=== PATIENT | female | born 1960 | race Caucasian/White ===

== ENCOUNTER 2016-05-27 02:23 | Inpatient (IN) | payer OTHER ==
--- NOTE | ~2016-05-27 | DS ---
Discharge Summary [facility] [address] [facility] [place]. [address] NAME: VENKATA JUNIOR : 58 STATUS : ADM IN [facility]#: [id number] AGE: 56 ADM/REG DATE : 05/27/16 MR#: [id number] REPORT SERV DATE: 06/01/16 DICTATED BY: RAJIV SHETH DATE: 06/01/16 REPORT STATUS : Draft TRANSCRIBED BY: MODL DATE: 06/01/16 ADMISSION DATE: 05/27/2016 DISCHARGE DATE: 06/01/2016 DIAGNOSES ON ADMISSION: 1. Aseptic meningitis with headaches and fevers. 2. Leg and hip pain. 3. Mild hypokalemia. 4. No evidence of urinary tract infection. DIAGNOSES ON DISCHARGE: 1. 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 Clinically improved on intravenous acyclovir. 2. Hypertension, controlled. 3. Headache, resolved. 4. Hypokalemia, resolved. 5. Leg and hip pain secondary to viral infection, resolved. 6. Shingles on the back and under the breast, improved. 7. No evidence of urinary tract infection. CONSULTANTS ON THE CASE: Dr. Alonzo of Infectious Disease and Dr. Gill of Neurology. IMAGING STUDIES: 1. MRI of the brain done on 05/27: No evidence of acute abnormality. There are some small gliotic changes in the right and left centrum semiovale. This appears to be remote. 2. X-ray of the hips: Two views, unremarkable. HISTORY OF PRESENT ILLNESS: Briefly, this is a very pleasant, 56-year-old female, who was admitted to the [facility] as a direct transfer from [facility] Department for headache, fever, neck pain and hip pain, where she had lumbar puncture done, which showed a picture of aseptic meningitis, lymphocytic meningitis. For details, see history of present illness dictated by Dr. Rodríguez on 05/27/2016. HOSPITAL COURSE: Briefly, the patient was admitted to the hospital. She was immediately started on intravenous acyclovir and Infectious Disease was consulted as well as Neurology was consulted. The patient was suffering from headaches which were severe in nature, as well as from the pain in her joints specifically in her hips. She was alert, awake, oriented, and she did not have any neurological deficits. The patient improved on intravenous acyclovir. Her headache has resolved and she was doing well. Her appetite improved. She had two areas of shingles under her right breast as well as on the back, and Dr. Alonzo was highly suspicious for varicella zoster meningitis, and he requested some studies from [facility], which he is still going to follow upon. The patient clinically improved. She does not have any headache and she was seen by Dr. Alonzo today, and he recommended her to be discharged today on valacyclovir 1 g p.o. q.8 hours for 12 days, as well as he recommended to do CBC and CMP in one week. She was given phone number Discharge Summary [facility] [address] [place]. [address] NAME: VENKATA JUNIOR : 58 STATUS : ADM IN [facility]#: [id number] AGE: 56 ADM/REG DATE : 05/27/16 MR#: [id number] REPORT SERV DATE: 06/01/16 DICTATED BY: RAJIV SHETH DATE: 06/01/16 REPORT STATUS : Draft TRANSCRIBED BY: MODL DATE: 06/01/[address] Alonzo to call in case if she needs to see him, or if there is any problem. The patient has one kidney. Her creatinine has stayed in the normal range during whole hospitalization, and she is doing well. She was also told to stay home until she feels much energy to go to work and she was also recommended if needed to follow up with her primary care physician, Dr. Chandler Oliver. DISCHARGE MEDICATIONS: Patient to continue her home medications which are Norvasc 5 mg a day, metoprolol 12.5 mg p.o. daily, Osphena 60 p.o. with breakfast, valacyclovir 1 g p.o. q.8 hours for [address] Alonzo. I spent 45 minutes on discharge. All questions were answered. MG/KATELYNNL Rajiv Sheth M.D. / [id number] CC: Deonte Snatacruz MD Paul Cornea, M.D. Gregory C. Gill, MD
--- NOTE | ~2016-05-27 | CN ---
Consultation Report [facility] [address] [place]. [address] NAME: VENKATA JUNIOR : 58 STATUS : ADM IN PAT#: [id number] AGE: 56 ADM/REG DATE : 05/27/16 MR#: [id number] REPORT SERV DATE: 05/27/16 DICTATED BY: DATE: REPORT STATUS : Draft TRANSCRIBED BY: MODL DATE: 05/27/16 NEUROLOGY CONSULTATION DATE OF CONSULTATION: 05/27/2016 REASON FOR CONSULTATION: Aseptic meningitis. HISTORY OF PRESENT ILLNESS: This is a 56-year-old female with acute onset of headache, this started on 05/22/2016. Described the headache initially in the back of her head, subsequently stays in the front of her head with the patient reports the headache mostly consistent, also waxing and waning in severity. The patient denies any aggravating or relieving factors. She denies any dysarthria, dysphagia, language difficulties, confusion, focal weakness, or numbness. The patient does complain of bilateral hip pain, but denies any difficulties ambulating. The patient, starting on 05/24/2016, started to note having chills as well as a fever. Presented herself to outside hospital for evaluation, and was noted to have fever of 100.2, with the patient's spinal tap noted to have abnormal cells with the patient noted to have a 330 white blood cells, with a neutrophil predominant of 97%, elevated protein of 104, with a glucose of 59, Gram stain otherwise reveals no bacteria. The patient denies any history of previous headache in the past, and denies any recent sick contact at the time of presentation. Since the hospitalization, the patient was placed on acyclovir and denies any significant improvement of the headache. Also, the patient was noted to have 97% lymphocytes on CSF evaluation performed at the outside hospital. REVIEW OF SYSTEMS: Otherwise negative except for those mentioned in the HPI. PAST MEDICAL HISTORY: Significant for hypertension. The patient only has one kidney according to the as well as history of interstitial cystitis. HOME MEDICATIONS: Consists of Norvasc, Lopressor, and Osphena. SOCIAL HISTORY: Denies tobacco, alcohol, or recreational drug usage. FAMILY HISTORY: Significant for coronary artery disease, as well as Parkinson's disease, diabetes, and kidney disease. ALLERGIES: THE PATIENT WAS NOTED TO HAVE ALLERGY TO SULFA. PHYSICAL EXAMINATION: VITAL SIGNS: Overnight, the patient was noted to have vital signs with T-max of 100, heart rate of 61 to 80, respiration of 16 to 18, and blood pressure of 130 to 138 over 72 to 75. GENERAL: The patient is well-developed, well-nourished, in no acute distress. CARDIOVASCULAR: Regular rate and rhythm. No carotid bruits were otherwise auscultated. Consultation Report [address] [place]. [address] NAME: VENKATA JUNIOR : 58 STATUS : ADM IN PAT#: [id number] AGE: 56 ADM/REG DATE : 05/27/16 MR#: [id number] REPORT SERV DATE: 05/27/16 DICTATED BY: DATE: REPORT STATUS : Draft TRANSCRIBED BY: XOCHITL DATE: 05/27/16 PULMONARY: Clear to auscultation bilaterally. NEUROLOGIC: Generally, the patient is alert and oriented to person, place, year, and month. Follows simple and 2-step commands. No dysarthria. No aphasia. Intact registration and recall. Cranial nerves 2 through 12, pupils are equal, round, and reactive to light. Extraocular eye movement was noted to be intact with intact peripheral vision. Symmetrical facial expression and sensation. Midline tongue. Normal palatal movement. Normal hearing. The patient demonstrated 5/5 bilateral upper and lower extremity strength with normal muscle, bulk, and tone. Deep tendon reflex was 2+ throughout. Symmetrical sensation bilaterally. Normal [id number] examination without ataxia. Normal station. Normal gait. LABORATORY STUDIES: At the time of evaluation demonstrated white blood cell count of 5.6, hemoglobin of 11.9, hematocrit of 35.0, and platelet count of 210. Chemistry panel: Sodium 145, potassium 3.5, chloride 110, bicarb 25, BUN of 8, creatinine 0.76, glucose of 116, and calcium of 8.0. No neuroimaging was available for comparison. CT scan performed at outside hospital demonstrated no acute process. IMPRESSION: Meningitis. No focal deficits at the time of evaluation noted. The patient was noted to have persistent low-grade fevers with persistent headache despite acyclovir administration since the hospital stay. Question of a possibly repeating lumbar puncture as the patient's lumbar puncture was performed at the outside hospital, and sample is unavailable to us at this time. We will also add Depakote for symptom control. Infectious Disease consult is currently pending. We will also obtain laboratory study as well as the MRI of the brain without contrast. RECOMMENDATION: 1. MRI of the brain without contrast. 2. Continue acyclovir. 3. Infectious Disease consult, pending. 4. Depakote 125 mg IV b.i.d. 5. Sedimentation rate, CRP, procalcitonin, [place] level, HIV, RPR, SSA, SSB antibody, BYRON as well as antidouble-stranded DNA antibody with morning labs. 6. Question of repeating the lumbar puncture. [facility]/MODL Gregory Gill MD / [id number] CC: Michelle Last M.D. Consultation Report [address] [address] NAME: VENKATA JUNIOR MARYURI : 58 STATUS : ADM IN [facility]#: [id number] AGE: 56 ADM/REG DATE : 05/27/16 MR#: [id number] REPORT SERV DATE: 05/27/16 DICTATED BY: DATE: REPORT STATUS : Draft TRANSCRIBED BY: MODL DATE: 05/27/16 Chandler Oliver MD
--- NOTE | ~2016-05-27 | CN ---
Consultation Report [facility] [address] [place]. [address] NAME: VENKATA JUNIOR : 58 STATUS : ADM IN [facility]#: [id number] AGE: 56 ADM/REG DATE : 05/27/16 MR#: [id number] REPORT SERV DATE: 05/28/16 DICTATED BY: MICHELE AGGARWAL DATE: 05/27/16 REPORT STATUS : Draft TRANSCRIBED BY: MODJossy DATE: 05/27/16 DATE OF CONSULTATION: REASON FOR CONSULT: Meningitis. HISTORY OF PRESENT ILLNESS: A 56-year-old white lady with history of hypertension and possible interstitial cystitis as well as left nephrectomy, who was transferred from [facility] emergency room for meningitis. On 05/22/2016, she had acute onset of occipital, then temporal headache. This was followed by severe bilateral hips and femoral bones pain and then fever and chills. She also had some neck ache, but no stiffness. She went to her PCP on the may, where she had a flu screen that was negative and some lab work for "bacterial infection." She was told that was normal. Because of the severe deep hip pains and the headache, she went to the emergency room at [facility] yesterday. She had extensive evaluation there. Lab work showed a WBC of 5.9, creatinine 1.0, lactic acid 0.9, hemoglobin 13, platelets 230. Urinalysis: 2+ bacteria, 2-5 white blood cells. Chest x-ray, no acute disease. CT of the brain, no acute disease. Eventually, she had an LP. The opening pressure reportedly was 31. Cell count showed 332 white blood cells with 97% lymphocytes, 13 red blood cells, 103 proteins, and 59 glucose. Reportedly, the Gram stain showed no organisms. She was given Rocephin and acyclovir, and then she was transferred here. She had a temperature of 101. She continues to have hip pains and headache, but she is getting pain medications. She had some nausea from the pain pills, decreased appetite. No diarrhea or constipation. Her discovered a red patch on the left side of her back. This does not hurt, just a little itchy. She has no abdominal pain. No dysuria. No throat soreness. No runny nose. No cough. No shortness of breath. Here, she was continued on acyclovir. PAST MEDICAL HISTORY: As I mentioned above plus she donated one kidney. She had hysterectomy, bladder prolapse, history of UTIs until three to four years ago. She has no history of TB or TB exposure, HIV, STDs. She never gets the flu vaccine. She had a pneumonia vaccine. She does recall having chickenpox and mumps. ALLERGIES: SHE SAID SULFA CAUSED SEVERE ACHE IN HER LOW BACK. FAMILY HISTORY: Heart disease, a lot of Parkinson and diabetes. SOCIAL HISTORY: She is . She has a grown daughter. No smoking. No IV drug use. No alcohol abuse. 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 No recent travel. No sick contacts. No exposure to bats. They have two dogs, they did not bite her. Last week, she helped a friend caulk on baseboards. She does spend time outdoors, but she had no known tick bites. No wild animal exposure. MEDICATIONS ON ADMISSION: Amlodipine, metoprolol, and ospemifene. No new medications. PHYSICAL EXAMINATION: GENERAL: Done in the presence of female nurse. She has a little bit of redness of the left Consultation Report [place] [id number] [facility] [place]. [address] NAME: VENKATA JUNIOR : 58 STATUS : ADM IN [facility]#: [id number] AGE: 56 ADM/REG DATE : 05/27/16 MR#: [id number] REPORT SERV DATE: 05/28/16 DICTATED BY: MICHELE AGGARWAL DATE: 05/27/16 REPORT STATUS : Draft TRANSCRIBED BY: XOCHITL DATE: 05/27/16 oral and nasal mucosa. Two tiny white spots on the left lateral mouth wall. EARS: Without inflammation. Sclerae are white. NECK: Not stiff. LUNGS: Clear to auscultation. No wheezes, rhonchi, or rales. HEART: Regular rhythm. ABDOMEN: Soft, nontender. Hips without erythema. LYMPH NODES: No palpable lymphadenopathy in the cervical preauricular, supraclavicular, submandibular, axillary, and inguinal areas. Legs without lesions. Hands without lesions. BACK: Left side of the back, she has two red patches, one larger than the other. The larger one maybe 3-4 cm long. They have what looks like may be beginning papules or even beginning vesicles. I asked her nurse to look for any similar lesions in the coccyx or perineal areas and none were reported. EXTREMITIES: Hips without erythema. Range of motion in both hips and knees without pain. ASSESSMENT AND PLAN: 1. Lymphocytic meningitis. 2. She has a severe bilateral hip pain that feels really deep into the joint, but she does not have associated swelling that I can see or pain with range of motion. 3. History of hypertension and interstitial cystitis. 4. She has this rash area on the left back. They might be suggestive of formation of early vesicles and could be compatible with shingles. Of course, shingles could be associated with meningitis. I called the microbiology lab at [facility] first and I was told that so far, the blood, urine, and CSF bacterial cultures are negative. The CSF Gram stain had no organisms. I called the [place] or [facility] lab and they tell me that she has very little CSF left there. The CSF was sent for viral fungal, AFB, and bacterial cultures. I suggested and I am going to request that instead of doing a viral culture to do a herpes zoster PCR and if there is any more CSF left, a herpes simplex PCR. Meanwhile could continue the acyclovir, but have to monitor the renal function since she has only one kidney. It has to be run slowly and the patient has to be well hydrated. No other obvious risk factors and no known tick bites. I do not see the typical lab abnormalities associated with rickettsiosis. I discussed with the patient the above. She had the opportunity to ask question. Time spent at least an hour and 15 minutes. PC/MODL Michele Aggarwal M.D. / [id number] CC: Consultation Report [place] [address] [place]. [address] NAME: VENKATA JUNIOR : 58 STATUS : ADM IN PAT#: [id number] AGE: 56 ADM/REG DATE : 05/27/16 MR#: [id number] REPORT SERV DATE: 05/28/16 DICTATED BY: MICHELE AGGARWAL DATE: 05/27/16 REPORT STATUS : Draft TRANSCRIBED BY: XOCHITL DATE: 05/27/16 Michelle Last M.D. Chandler Oliver MD
--- NOTE | ~2016-05-27 | HP ---
History And Physical [place] [address] [place]. [address] NAME: VENKATA JUNIOR : 58 STATUS : ADM IN [facility]#: [id number] AGE: 56 ADM/REG DATE : 05/27/16 MR#: [id number] REPORT SERV DATE: 05/27/16 DICTATED BY: ROBERTO CARLOS WILSON DATE: 05/27/16 REPORT STATUS : Draft TRANSCRIBED BY: MODJossy DATE: 05/27/16 DATE OF ADMISSION: 05/27/2016 POINT OF ENTRY: Transfer from [facility] Emergency Department. PRIMARY CARE PHYSICIAN: Chandler Oliver M.D. CHIEF COMPLAINT: Headache, fevers, neck pain, and hip pain. HISTORY OF PRESENT ILLNESS: Ms Junior is a 56-year-old female with a history of hypertension as well as interstitial cystitis, who presented to [facility] Emergency Department on the evening of 05/26/2016 with a history of three days of headaches, fevers, neck pain, and stiffness as well as hip and leg pain. The patient states that she has had a three-day history of very severe headaches which is very unusual for her. This has been associated with fevers as high as 102 degrees Fahrenheit as well as some neck pain and stiffness. For the past two days her main complaint has been sharp severe achiness described as a deep ache in her bilateral hips as well as bilateral legs. The patient also has had a poor appetite, some nausea, vomiting, as well as associated chills. She was seen in Dr. Oliver's office on Wednesday where a flu swab was negative as was the CBC was unremarkable. Initial evaluation at [facility] Emergency Department notable for a 100.2 degrees Fahrenheit fever. CBC was unremarkable. CT scan of the brain was negative. Chest x-ray was clear. Urinalysis had some mild pyuria; however, she denied any symptoms. She underwent lumbar puncture which showed 330 white blood cells per mL with a neutrophil predominance of 97% with no appreciable neutrophils. Her protein level was mildly elevated at 104, glucose was within normal limits at 59. Per verbal report, the Gram stain was notable for many white blood cells, but no organisms. She was subsequently transferred to [facility] for higher level of care. REVIEW OF SYSTEMS: Comprehensive system otherwise negative unless listed in history present illness. Upon arrival to our facility, the patient states she feels much better and actually has an appetite and asking for something to eat and drink. PREVIOUS MEDICAL HISTORY: 1. Hypertension. 2. Interstitial cystitis. PAST SURGICAL HISTORY: 1. Left nephrectomy donor to sibling. 2. Abdominal hysterectomy. History And Physical [address] [address] NAME: VENKATA JUNIOR : 58 STATUS : ADM IN [facility]#: [id number] AGE: 56 ADM/REG DATE : 05/27/16 MR#: [id number] REPORT SERV DATE: 05/27/16 DICTATED BY: ROBERTO CARLOS WILSON DATE: 05/27/16 REPORT STATUS : Draft TRANSCRIBED BY: XOCHITL DATE: 05/27/16 ALLERGIES: TO SULFA DRUGS. HOME MEDICATIONS: 1. Norvasc 5 mg daily. 2. Lopressor 12.5 mg q.h.s. 3. Osphena 60 mg Wednesday, Wednesday, and Wednesday. SOCIAL HISTORY: Denies any tobacco, alcohol, or illicits. She is . 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 No recent known sick exposures or international travel. FAMILY MEDICAL HISTORY: Mother with coronary artery disease and valvular disease. Father with Parkinson's disease. Siblings with diabetes, kidney disease, and Parkinson's disease. LABS AND IMAGIN. White count is 5.9, hemoglobin is 13.2, hematocrit is 39.5, platelet count is 231, and neutrophil percent is 70%. 2. Sodium is 140, potassium 3.2, chloride 103, carbon dioxide 28, BUN 9, creatinine 1.0, glucose is 113, calcium is 9.1, protein is 7.2, albumin is 3.9, bilirubin is 0.4, ALT is 16, AST 16, and alkaline phosphatase is 94. 3. Chest x-ray per report shows no acute cardiopulmonary abnormality. 4. CT scan of the brain per Radiology report shows no acute intracranial abnormality. 5. Urinalysis: Spec gravity is 1.020, 2 to 5 white blood cells per high-powered field with trace leukocyte esterase, with 2+ bacteria. 6. A CSF analysis was clear and colorless with 3 in 32 white blood cells and 13 red blood cells per mL with 97% lymphocytes and 3% monocytes. The opening pressure was reported to be 31. Glucose is 59. Protein with 104. Per verbal report, the Gram stain showed many white blood cells, but no organisms. PHYSICAL EXAMINATION: VITAL SIGNS: Temperature is 98.1 degrees Fahrenheit, pulse is 72, respirations 16, saturating 99% on room air, and blood pressure 134/75. GENERAL: The patient is awake and alert, in no acute distress. Resting comfortably in bed. She is ill-appearing, but nontoxic. is at bedside. HEENT: Atraumatic and normocephalic. Moist mucous membranes. Pupils are equal, round, reactive to light and accommodation. Extraocular eye movements are intact. No scleral icterus. NECK: No jugular venous distention. No carotid bruits. CARDIAC: Regular rate and rhythm. No murmurs, rubs, or gallops. Normal S1, S2. LUNGS: Clear to auscultation bilaterally. No wheezes, rhonchi, or crackles. ABDOMEN: Soft, nontender, and nondistended with good bowel sounds. No rebound, guarding, or rigidity. EXTREMITIES: Warm and perfused. No cyanosis, clubbing, or edema. SKIN: Warm and dry. PSYCH: Affect appropriate. NEURO: Alert and oriented x3. Cranial nerves 2 through 12 are grossly intact. Speech is normal. Gait is not assessed. The patient has intact level of consciousness, and states History And Physical [address] [place]. [address] NAME: VENKATA JUNIOR : 58 STATUS : ADM IN [facility]#: [id number] AGE: 56 ADM/REG DATE : 05/27/16 MR#: [id number] REPORT SERV DATE: 05/27/16 DICTATED BY: ROBERTO CARLOS WILSON DATE: 05/27/16 REPORT STATUS : Draft TRANSCRIBED BY: MODJossy DATE: 05/27/16 that her nuchal rigidity is significantly improved compared to a few hours earlier. ASSESSMENT AND PLAN: Ms Junior is a 56-year-old female, who presents with a few day history of fevers, headaches, neck stiffness, and pain as well as lower extremity and hip pain, and found to have evidence consistent with likely aseptic meningitis. PROBLEM LIST: 1. Aseptic meningitis. 2. Fevers. 3. Leg and hip pain. 4. Hypokalemia. 5. Asymptomatic pyuria. PLAN: 1. Aseptic meningitis. Given the patient's CSF analysis I suspect this is aseptic meningitis. She has a negative Gram stain as well as absolutely no identifiable neutrophils on her cell count and diff. Remainder of the CSF analysis also was consistent with aseptic viral meningitis versus bacterial meningitis. Given presence of 13 red blood cells I agree with continuation of empiric acyclovir treatment until Neurology and Infectious Disease can see the patient in consultation in the morning. In the meantime, we will follow up remainder of CSF testing and cultures from outside facility. We will hold off on empiric treatment for bacterial meningitis at this time. 2. Fevers likely secondary to aseptic meningitis. Chest x-ray was clear. She has no white count. Her urinalysis did show some pyuria; however, she denies any symptoms. It is worth noting she did receive a one time dose of IV Rocephin. Follow up urine, blood, as well as CSF cultures from outside facility. 3. Hip and leg pain. I suspect that the patient's description of hip and leg pain is more myalgia in nature which could be secondary to her fevers as well as underlying viral infection. We will continue to monitor. Of note, flu swab at PCP's office was negative on Wednesday. 4. DVT prophylaxis. Teds and SCDs. 5. Code status. The patient wished to be full code. JCB/MODL Roberto Carlos Wilson MD / [id number] CC: Deonte Santacruz MD
[2016-05-27] MEDS ORDERED: NORV5 PO (02:41)
[2016-05-27] MEDS ORDERED: LOP25 PO ×2 (02:42→02:46)
[2016-05-27] MEDS ORDERED: OSPHENA60 MG (02:43)
[2016-05-27] MEDS ORDERED: OSPHENA60 MG PO ×2 (02:44→03:16)
[2016-05-27 06:13] LABS: BASOPHILS 0.7 %; BASOPHILS ABSOLUTE 0.04 10/3/uL (0.0-0.16); EOSINOPHILS 0.9 %; EOSINOPHILS ABSOLUTE 0.05 10/3/uL (0.0-0.53); LYMPHOCYTES 28.7 %; LYMPHOCYTES ABSOLUTE 1.62 10/3/uL (0.67-4.30); MEAN CORPUSCULAR VOLUME 94.1 fL (80-100); MEAN PLATELET VOLUME 10.2 fL (9.2-13.0); MONOCYTES 13.3 %; MONOCYTES ABSOLUTE 0.75 10/3/uL (0.21-1.20); NEUTROPHILS 56.4 %; NEUTROPHILS ABSOLUTE 3.18 10/3/uL (2.02-8.40); RBC DISTRIBUTION WIDTH 12.2 % (12.0-16.0); WHITE BLOOD CELLS 5.6 10/3/uL (4.5-10.5)
[2016-05-27 06:14] LABS: HEMOGLOBIN 11.9 g/dL (12.0-16.0); MANUAL DIFF NO %; PLATELET COUNT 210 10/3/uL (150-400); RED CELL COUNT 3.72 10/6/uL (4.0-5.6)
[2016-05-27 06:26] LABS: CHLORIDE, SERUM 110 MMOL/L (96-112); CREATININE 0.76 MG/DL (0.55-1.02); GFR AFRICAN AMERICAN 101 ML/MIN (>=60); GFR NON AFRICAN AMERICAN 87 ML/MIN (>=60); GLUCOSE, SERUM 116 MG/DL (60-99); POTASSIUM, SERUM 3.5 MMOL/L (3.5-5.3); SODIUM, SERUM 145 MMOL/L (135-148)
[2016-05-27 06:27] LABS: BUN (BLOOD UREA NITROGEN) 8 MG/DL (6-23); CO2 (CARBON DIOXIDE) 25 MMOL/L (24-34)
[2016-05-28 06:35] LABS: BASOPHILS 0.7 %; BASOPHILS ABSOLUTE 0.03 10/3/uL (0.0-0.16); EOSINOPHILS 2.5 %; EOSINOPHILS ABSOLUTE 0.11 10/3/uL (0.0-0.53); HEMATOCRIT 33.4 % (36.0-48.0); HEMOGLOBIN 11.7 g/dL (12.0-16.0); LYMPHOCYTES 23.6 %; LYMPHOCYTES ABSOLUTE 1.03 10/3/uL (0.67-4.30); MEAN CORPUSCULAR HEMOGLOB 32.3 pg (26.0-34.0); MEAN CORPUSCULAR VOLUME 92.3 fL (80-100); MEAN PLATELET VOLUME 9.7 fL (9.2-13.0); MONOCYTES 12.2 %; MONOCYTES ABSOLUTE 0.53 10/3/uL (0.21-1.20); NEUTROPHILS ABSOLUTE 2.66 10/3/uL (2.02-8.40); PLATELET COUNT 189 10/3/uL (150-400); RBC DISTRIBUTION WIDTH 12.2 % (12.0-16.0); RED CELL COUNT 3.62 10/6/uL (4.0-5.6); WHITE BLOOD CELLS 4.4 10/3/uL (4.5-10.5)
[2016-05-28 06:46] LABS: MANUAL DIFF NO %
[2016-05-28 06:48] LABS: BUN (BLOOD UREA NITROGEN) 6 MG/DL (6-23); C-REACTIVE PROTEIN < 2.9 MG/L (<8.0); CALCIUM, SERUM 8.2 MG/DL (8.5-10.4); CHLORIDE, SERUM 107 MMOL/L (96-112); CO2 (CARBON DIOXIDE) 26 MMOL/L (24-34); CPK 45 U/L (0-200); CREATININE 0.82 MG/DL (0.55-1.02); GFR AFRICAN AMERICAN 92 ML/MIN (>=60); GFR NON AFRICAN AMERICAN 79 ML/MIN (>=60); GLUCOSE, SERUM 109 MG/DL (60-99); POTASSIUM, SERUM 3.5 MMOL/L (3.5-5.3); SODIUM, SERUM 141 MMOL/L (135-148)
[2016-05-28 07:27] LABS: SED RATE 8 MM/HR (0-20)
[2016-05-28 07:43] LABS: PROCALCITONIN <0.05 ng/mL (<0.5)
[2016-05-29 06:51] LABS: BASOPHILS 0.4 %; BASOPHILS ABSOLUTE 0.02 10/3/uL (0.0-0.16); EOSINOPHILS ABSOLUTE 0.15 10/3/uL (0.0-0.53); HEMATOCRIT 35.5 % (36.0-48.0); HEMOGLOBIN 12.4 g/dL (12.0-16.0); LYMPHOCYTES ABSOLUTE 1.82 10/3/uL (0.67-4.30); MEAN CORPUS HGB CONC 34.9 g/dL (32.0-36.0); MEAN CORPUSCULAR HEMOGLOB 32.4 pg (26.0-34.0); MEAN CORPUSCULAR VOLUME 92.7 fL (80-100); MEAN PLATELET VOLUME 9.7 fL (9.2-13.0); MONOCYTES 9.8 %; MONOCYTES ABSOLUTE 0.48 10/3/uL (0.21-1.20); NEUTROPHILS 49.8 %; NEUTROPHILS ABSOLUTE 2.45 10/3/uL (2.02-8.40); PLATELET COUNT 203 10/3/uL (150-400); RBC DISTRIBUTION WIDTH 11.8 % (12.0-16.0); RED CELL COUNT 3.83 10/6/uL (4.0-5.6); WHITE BLOOD CELLS 4.9 10/3/uL (4.5-10.5)
[2016-05-29 06:52] LABS: MANUAL DIFF NO %
[2016-05-29 07:04] LABS: ALKALINE PHOSPHATASE 65 U/L (45-117); BUN (BLOOD UREA NITROGEN) 7 MG/DL (6-23); CALCIUM, SERUM 8.2 MG/DL (8.5-10.4); CHLORIDE, SERUM 106 MMOL/L (96-112); CO2 (CARBON DIOXIDE) 26 MMOL/L (24-34); CREATININE 0.88 MG/DL (0.55-1.02); GFR AFRICAN AMERICAN 85 ML/MIN (>=60); GFR NON AFRICAN AMERICAN 73 ML/MIN (>=60); GLUCOSE, SERUM 95 MG/DL (60-99); POTASSIUM, SERUM 3.5 MMOL/L (3.5-5.3); SGOT(AST) 11 U/L (5-40); SGPT(ALT) 11 U/L (5-65); SODIUM, SERUM 142 MMOL/L (135-148); TOTAL BILIRUBIN 0.6 MG/DL (0-1.2); TOTAL PROTEIN 5.8 G/DL (6.0-8.5)
[2016-05-29 07:06] LABS: DIRECT BILIRUBIN < 0.1 MG/DL (0.0-0.4); INDIRECT BILIRUBIN(NOT ORDER) 0.5 MG/DL (0.1-0.9)
[2016-05-29 18:24] LABS: INFLUENZA A SCREEN NEGATIVE (NEGATIVE); INFLUENZA B SCREEN NEGATIVE (NEGATIVE)
[2016-05-30 06:07] LABS: BASOPHILS 0.5 %; BASOPHILS ABSOLUTE 0.02 10/3/uL (0.0-0.16); EOSINOPHILS 4.9 %; EOSINOPHILS ABSOLUTE 0.19 10/3/uL (0.0-0.53); HEMATOCRIT 36.8 % (36.0-48.0); HEMOGLOBIN 12.8 g/dL (12.0-16.0); IMMATURE GRANULOCYTES 0.3 %; IMMATURE GRANULOCYTES ABSOLUTE 0.01 10/3/uL (0.0-0.11); LYMPHOCYTES 39.2 %; LYMPHOCYTES ABSOLUTE 1.53 10/3/uL (0.67-4.30); MEAN CORPUS HGB CONC 34.8 g/dL (32.0-36.0); MEAN PLATELET VOLUME 9.9 fL (9.2-13.0); MONOCYTES 9.5 %; MONOCYTES ABSOLUTE 0.37 10/3/uL (0.21-1.20); NEUTROPHILS 45.6 %; NEUTROPHILS ABSOLUTE 1.78 10/3/uL (2.02-8.40); RBC DISTRIBUTION WIDTH 11.8 % (12.0-16.0); WHITE BLOOD CELLS 3.9 10/3/uL (4.5-10.5)
[2016-05-30 06:09] LABS: MANUAL DIFF NO %; PLATELET COUNT 142 10/3/uL (150-400)
[2016-05-30 06:26] LABS: ALBUMIN 3.1 G/DL (3.5-5.0); ALKALINE PHOSPHATASE 70 U/L (45-117); CALCIUM, SERUM 8.4 MG/DL (8.5-10.4); CHLORIDE, SERUM 106 MMOL/L (96-112); CO2 (CARBON DIOXIDE) 24 MMOL/L (24-34); CREATININE 0.72 MG/DL (0.55-1.02); GFR AFRICAN AMERICAN 108 ML/MIN (>=60); GFR NON AFRICAN AMERICAN 93 ML/MIN (>=60); GLUCOSE, SERUM 103 MG/DL (60-99); POTASSIUM, SERUM 3.5 MMOL/L (3.5-5.3); SGOT(AST) 14 U/L (5-40); SGPT(ALT) 11 U/L (5-65); SODIUM, SERUM 141 MMOL/L (135-148); TOTAL BILIRUBIN 0.5 MG/DL (0-1.2); TOTAL PROTEIN 6.1 G/DL (6.0-8.5)
[2016-05-30 06:27] LABS: BUN (BLOOD UREA NITROGEN) 11 MG/DL (6-23)
[2016-05-31 04:39] LABS: BASOPHILS 1.1 %; BASOPHILS ABSOLUTE 0.06 10/3/uL (0.0-0.16); EOSINOPHILS 4.9 %; EOSINOPHILS ABSOLUTE 0.26 10/3/uL (0.0-0.53); HEMATOCRIT 35.3 % (36.0-48.0); HEMOGLOBIN 12.5 g/dL (12.0-16.0); IMMATURE GRANULOCYTES 0.2 %; IMMATURE GRANULOCYTES ABSOLUTE 0.01 10/3/uL (0.0-0.11); LYMPHOCYTES 27.5 %; LYMPHOCYTES ABSOLUTE 1.45 10/3/uL (0.67-4.30); MEAN CORPUS HGB CONC 35.4 g/dL (32.0-36.0); MEAN CORPUSCULAR HEMOGLOB 32.5 pg (26.0-34.0); MEAN CORPUSCULAR VOLUME 91.7 fL (80-100); MEAN PLATELET VOLUME 9.2 fL (9.2-13.0); MONOCYTES ABSOLUTE 0.37 10/3/uL (0.21-1.20); NEUTROPHILS 59.3 %; NEUTROPHILS ABSOLUTE 3.13 10/3/uL (2.02-8.40); RED CELL COUNT 3.85 10/6/uL (4.0-5.6); WHITE BLOOD CELLS 5.3 10/3/uL (4.5-10.5)
[2016-05-31 04:40] LABS: MANUAL DIFF NO %; PLATELET COUNT 224 10/3/uL (150-400)
[2016-05-31 04:48] LABS: BUN (BLOOD UREA NITROGEN) 11 MG/DL (6-23); CALCIUM, SERUM 8.3 MG/DL (8.5-10.4); CHLORIDE, SERUM 105 MMOL/L (96-112); CO2 (CARBON DIOXIDE) 28 MMOL/L (24-34); CREATININE 0.77 MG/DL (0.55-1.02); GFR AFRICAN AMERICAN 99 ML/MIN (>=60); GFR NON AFRICAN AMERICAN 86 ML/MIN (>=60); GLUCOSE, SERUM 102 MG/DL (60-99); POTASSIUM, SERUM 3.5 MMOL/L (3.5-5.3); SODIUM, SERUM 142 MMOL/L (135-148)
[2016-06-01 07:26] LABS: BUN (BLOOD UREA NITROGEN) 10 MG/DL (6-23); CALCIUM, SERUM 8.4 MG/DL (8.5-10.4); CHLORIDE, SERUM 105 MMOL/L (96-112); CO2 (CARBON DIOXIDE) 27 MMOL/L (24-34); CREATININE 0.76 MG/DL (0.55-1.02); GFR AFRICAN AMERICAN 101 ML/MIN (>=60); GFR NON AFRICAN AMERICAN 87 ML/MIN (>=60); GLUCOSE, SERUM 97 MG/DL (60-99); POTASSIUM, SERUM 3.7 MMOL/L (3.5-5.3); SODIUM, SERUM 141 MMOL/L (135-148)
[2016-06-01] MEDS ORDERED: VALTREX PO (12:26)
[2016-06-01 13:25] LABS: IMMUNOGLOBULIN A 271 MG/DL (70-420); IMMUNOGLOBULIN M 71 MG/DL (30-270)
[2016-06-02 09:53] LABS: ANTI SS-A Positive (NEGATIVE); ANTI SS-B NEGATIVE (NEGATIVE)
[2016-06-04 01:00] LABS: CD4 LYMPH % 24.7 % (15.0-48.0); CD4 SOURCE Blood (()); CD4 WBC 5.7 K/uL (3.8-11.0)
== END 2016-06-01 13:45 | disposition home or self-care (01) | DRG 76 ==
LOC: 5SO 02:23
PROVIDERS: Hospitalist; Internal Medicine; Internal Medicine Infectious Disease; Psychiatry & Neurology Neurology
DX: A87.2 Lymphocytic choriomeningitis (principal); B02.9 Zoster without complications; I10 Essential (primary) hypertension; E87.6 Hypokalemia; Z90.5 Acquired absence of kidney; Z90.710 Acquired absence of both cervix and uterus; Z79.899 Other long term (current) drug therapy; Z88.2 Allergy status to sulfonamides; Z88.1 Allergy status to other antibiotic agents; M25.552 Pain in left hip; M25.551 Pain in right hip; M79.662 Pain in left lower leg; M79.661 Pain in right lower leg
CPT/HCPCS: 70551; 73521; 80048; 80053; 80076; 82164; 82550; 82565; 82784; 83520; 84145; 85025; 85652; 86140; 86162; 86225; 86235; 86235-59; 86361; 86592; 87327; 87389; 87804; A9270-GY; J0133; J1885